=== PATIENT | male | born 1970 | race Caucasian/White ===

== ENCOUNTER 2020-03-17 23:54 | Emergency (ER) | payer OTHER, SELFPAY ==
[2020-03-18] VITALS: BP 159/94; PULSE 55; RESP 18; TEMP 36.6; O2SAT 98
[2020-03-18] MEDS: HYDROcodone/acetaminophen (*CRX) 5-325 MG TABLET 1 TAB PO (00:11)
--- NOTE | 2020-03-18 00:11 | ED_ITS ---
HPI - Dental/Oral General Chief complaint: Dental/Oral Stated complaint: tooth pain Time Seen by Provider: 03/17/20 23:56 History of Present Illness HPI Narrative: Patient is a 49-year-old male who presents ER with dental pain to the upper and lower aspects of his jaw. Has chronic disease to his teeth with decay. He is currently on amoxicillin. Reports symptoms are getting worse. He is to have his teeth pulled on 03/24/2020. No fevers or chills or sweats. Pain refers to his left ear and causes discomfort. No difficulty breathing or swallowing. No facial swelling. Related Data Home Medications Medication Instructions Recorded Confirmed amoxicillin 03/18/20 Allergies Allergy/AdvReac Type Severity Reaction Status Date / Time No Known Allergies Allergy Verified 03/18/20 00:05 Review of Systems Constitutional: Constitutional: Denies chills and Denies fever(s) ENT: Denies sore throat Comments: Dental pain PMFSH Past Medical History Medical History (Updated 03/18/20 @ 00:16 by Cheo Richmond MD) Bipolar 1 disorder COPD (chronic obstructive pulmonary disease) H/O: HTN (hypertension) History of gynecomastia Surgical History Surgical History (Updated 03/18/20 @ 00:15 by Cheo Richmond MD) Optional surgery Gynecomastia Social History Social History (Updated 03/18/20 @ 00:12 by Cheo Richmond MD) Tobacco type: cigarettes Exam Narrative: Exam Narrative: GENERAL: Well-appearing, well-nourished, and in no acute distress. HEAD: Normocephalic, atraumatic. ENT: Poor dentition of the mouth without discernible abscess. TMs normal. EXTREMITIES: Normal range of motion. No edema. NEURO: Alert and oriented x3. PSYCH: Normal mood and affect. Course Course Emergency Course: [facility] here. Discharge with clindamycin. Discontinue amoxicillin Vital Signs Vital signs: Vital Signs Temperature 98 F 03/18/20 00:00 Pulse Rate 55 L 03/18/20 00:00 Respiratory Rate 18 03/18/20 00:00 Blood Pressure 159/94 H 03/18/20 00:00 Pulse Oximetry 98 03/18/20 00:00 Temperature 98 F 03/18/20 00:00 Pulse Rate 55 L 03/18/20 00:00 Respiratory Rate 18 03/18/20 00:00 Blood Pressure 159/94 H 12/16/20 00:00 Pulse Oximetry 98 03/18/20 00:00 Discharge Plan Discharge Clinical Impression: Toothache Patient Disposition: Home, Self-Care Condition: Stable Instructions: Antibiotic Form, Toothache (ED) Additional Instructions: Return to the ER if cannot breathe, you cannot swallow, you lose consciousness, you have additional concerns. Discontinue amoxicillin and start taking clindamycin. Prescriptions: New hydrocodone-acetaminophen 5-325 mg tablet 1 tablet PO Q6H PRN (Reason: pain) Qty: 10 RF: 0 clindamycin HCl 300 mg capsule 300 mg PO Q8H Qty: 21 RF: 0 No Action amoxicillin 500 mg capsule RF: 0 Follow-up/Referrals: UNKNOWN,DOCTOR [Primary Care Provider] -
[2020-03-18 01:14] VITALS: BP 145/78; PULSE 62; RESP 16; O2SAT 100
== END 2020-03-18 01:15 | disposition home or self-care (01) ==
PROVIDERS: Emergency Provider Emergency Medicine
DX: K08.9 Disorder of teeth and supporting structures, unspecified (principal); K02.9 Dental caries, unspecified; J44.9 Chronic obstructive pulmonary disease, unspecified; I10 Essential (primary) hypertension; F17.210 Nicotine dependence, cigarettes, uncomplicated
CPT/HCPCS: 99283; A9270

== ENCOUNTER 2020-07-22 22:15 | Emergency (ER) | payer OTHER, SELFPAY ==
[2020-07-22] VITALS (9 sets, daily range): BP systolic 108–141; BP diastolic 67–86; PULSE 66–81; RESP 14–29; TEMP 36.6; O2SAT 96–98
--- NOTE | ~2020-07-22 | CT_ITS ---
EXAMINATION: CT BRAIN W/O DATE: 07/22/2020 23:12 INDICATION: Headache after injury TECHNIQUE: Computed tomography (CT) of the head was performed without intravenous contrast. The dose- length product was 681.00 mGy-cm. The mA was adjusted according to patient size. Iterative reconstruc tion technique was employed. COMPARISON: No prior studies for comparison. FINDINGS: Normal brain parenchymal volume for age. Normal stern-white differentiation. No acute intrac ranial hemorrhage, infarction, mass or mass effect. No ventriculomegaly or midline shift. Midline sagittal images demonstrate a normal corpus callosum, c raniovertebral junction and sella turcica. Basilar cisterns are patent. Paranasal sinuses and mastoids are pneumatized. No depressed skull fractures. IMPRESSION: 1. No acute intracranial abnormality. Reviewed, dictated and finalized at location A.
--- NOTE | 2020-07-22 22:27 | ECG_ITS ---
Measurements Intervals [place] Rate: 76 P: 70 MT: 176 QRS: 26 QRSD: 108 T: 54 QT: 375 QTc: 422 Interpretive Statements SINUS RHYTHM BASELINE ARTIFACT- I, II, III, AVR, AVL, AVF, V1-V2, V6 NORMAL ECG Electronically Signed On 07-23-2020 7:13:02 CDT by Chris Hope D.O.
[2020-07-22] MEDS: ONDANSETRON INJ 4 MG/2 ML VIAL IV PUSH (22:33)
[2020-07-22 22:42] LABS: Basophils Absolute Auto 0.2 K/mm3 (0.0-0.1); Basophils Percent Auto 1.3 % (0.2-1.2); Eosinophils Absolute Auto 0.4 K/mm3 (0-0.3); Hemoglobin 15.6 g/dL (14.0-18.0); Immature Granulocyte Absolute 0.06 K/mm3 (0.00-0.031); Immature Granulocyte Percent A 0.4 % (0-0.5); Lymphocytes Absolute Auto 4.65 K/mm3 (0.9-3.2); Lymphocytes Percent Auto 34.5 % (18.3-44.2); Mean Corpuscular HGB Conc 34.7 g/dl (32-36); Mean Corpuscular Hemoglobin 32.2 pg (26-34); Mean Corpuscular Volume 92.8 fl (80-100); Mean Platelet Volume 8.7 fl (7.4-10.4); Monocytes Percent Auto 7.6 % (2.6-8.5); Neutrophils Absolute Auto 7.2 K/mm3 (1.3-6.7); Neutrophils Percent Auto 53.2 % (45.5-73.1); Platelet Count Result 297 k/mm3 (150-375); Red Blood Count 4.85 M/mm3 (4.6-6.20); Red Cell Distribution Width 12.7 % (11.5-14.5); White Blood Count 13.5 K/mm3 (4.5-10.0)
[2020-07-22 22:54] LABS: INR 0.9; Prothrombin Time 12.5 Seconds (11.1-14.7)
--- NOTE | 2020-07-22 22:55 | ED.GENADULT ---
HPI - General Adult General Chief complaint: Neuro Symptoms/Deficit Stated complaint: hit head x 2, facial numbness, blurry vision Time Seen by Provider: 07/22/20 22:21 Source: patient Mode of arrival: ambulatory Limitations: no limitations History of Present Illness HPI narrative: This is a 49 year old male who presents for evaluation after suffering a head injury. He states 5 hours ago he accidentally hit his head on a wooden step twice. He states he lifting a box and he hit his head when he stood up and this happened twice. He hit the top of his head and the back of his head. He denies LOC but reports dizziness and nausea . He also states his lips feel numbness. He denies focal weakness. He does not take anticoagulation. Related Data Home Medications Medication Instructions Recorded Confirmed amoxicillin 03/18/20 Allergies Allergy/AdvReac Type Severity Reaction Status Date / Time No Known Allergies Allergy Verified 07/22/20 22:29 Review of Systems Review of Systems: All systems reviewed & are unremarkable except as noted in HPI and below PMFSH Past Medical History Medical History (Updated 07/23/20 @ 00:21 by Brionna Mohamud MD) Bipolar 1 disorder COPD (chronic obstructive pulmonary disease) H/O: HTN (hypertension) Hepatitis C History of gynecomastia Surgical History Surgical History (Updated 03/18/20 @ 00:15 by Cheo Richmond MD) Optional surgery Gynecomastia Social History Social History (Updated 03/18/20 @ 00:12 by Cheo Richmond MD) Tobacco type: cigarettes Exam Const: General: no acute distress and alert Orientation/consciousness: patient oriented x3 HENMT: Head: normocephalic and atraumatic Ears: TM's normal bilaterally Face and sinus: face symmetric Throat: uvula midline Eyes: Pupils: Equal, round and reactive pupils present EOM: EOMs intact bilaterally Neck: Neck: normal visual inspection Chest: Chest palpation & inspection: normal inspection of the chest Resp: Effort & Inspection: normal respiratory effort and no retractions Auscultation: clear to auscultation bilaterally GI: GI Palp: Yes Soft to palpation, No Tenderness to palpation present (GI) and No Guarding due to palpation present (GI) Auscultation: normal bowel sounds Neuro: General: patient oriented x3, moves all extremities and CN's II-XI intact bilaterally Psych: Mental Status: mental status grossly normal Affect: normal affect Course Reevaluation(s) Reevaluation #1: I discussed with patient he appears to have a negative CT brain. HE likely suffered a concussion. Date: 07/23/20 Time: 00:20 Vital Signs Vital signs: Vital Signs Temperature 97.8 F 07/22/20 22:21 Pulse Rate 81 07/22/20 22:21 Respiratory Rate 16 07/22/20 22:21 Blood Pressure 141/81 H 07/22/20 22:21 Pulse Oximetry 97 07/22/20 22:21 Temperature 97.8 F 07/22/20 22:21 Pulse Rate 68 07/23/20 00:37 Respiratory Rate 16 07/23/20 00:37 Blood Pressure 111/64 07/23/20 00:37 Pulse Oximetry 98 07/23/20 00:37 Medical Decision Making Vital Signs Vital Signs: Vital Signs Temperature 97.8 F 07/22/20 22:21 Pulse Rate 81 07/22/20 22:21 Respiratory Rate 16 07/22/20 22:21 Blood Pressure 141/81 H 07/22/20 22:21 Pulse Oximetry 97 07/22/20 22:21 Temperature 97.8 F 07/22/20 22:21 Pulse Rate 68 07/23/20 00:37 Respiratory Rate 16 07/23/20 00:37 Blood Pressure 111/64 07/23/20 00:37 Pulse Oximetry 98 07/23/20 00:37 Lab Data Lab results reviewed: Yes I reviewed the patient's lab results. Result diagrams: 07/22/20 22:35 07/22/20 22:35 Labs: Lab Results 07/22/20 07/22/20 07/22/20 Range/Units 22:35 22:35 22:35 WBC 13.5 H (4.5-10.0) K/mm3 RBC 4.85 (4.6-6.20) M/mm3 Hgb 15.6 (14.0-18.0) g/dL Hct 45.0 (42.0-52.0) % MCV 92.8 (80-100) fl MCH 32.2 (26-34) pg MCHC 34.7 (32-36) g/dl RDW 12.7
[2020-07-22 23:13] LABS: Alanine Aminotransferase 36 U/L (4-50); Albumin Level 4.2 g/dL (3.5-5.1); Alkaline Phosphatase 95 U/L (38-126); Anion Gap 6 mmol/L (8-16); Aspartate Amino Transferase 38 U/L (17-59); Bilirubin,Total 0.3 mg/dL (0.2-1.3); Blood Urea Nitrogen 14 mg/dL (9-20); Calcium 8.2 mg/dL (8.4-10.2); Carbon Dioxide 26 mmol/L (22-30); Chloride 105 mmol/L (98-107); Estimated Glomerular Filt Rate > 60; Glucose 120 mg/dL (75-110); Potassium 4.2 mmol/L (3.4-5.0); Sodium 137 mmol/L (137-145)
[2020-07-23 00:37] VITALS: BP 111/64; PULSE 68; RESP 16; O2SAT 98
== END 2020-07-23 00:36 | disposition home or self-care (01) ==
PROVIDERS: Emergency Provider General Practice
DX: S06.0X0A Concussion without loss of consciousness, initial encounter (principal); W51.XXXA Accidental striking against or bumped into by another person, initial encounter; J44.9 Chronic obstructive pulmonary disease, unspecified; I10 Essential (primary) hypertension; Z86.19 Personal history of other infectious and parasitic diseases
CPT/HCPCS: 36415; 70450; 80053; 85025; 85610; 85730; 93005; 96374; 99284; J2405